=== PATIENT | female | born 1975 | race Two or more races ===

== ENCOUNTER 2016-06-18 20:26 | Emergency (ER) | payer OTHER ==
[2016-06-18 20:32] VITALS: BP 132/75; PULSE 64; TEMP 98; BMI 30.2
--- NOTE | 2016-06-18 21:08 | PDOC ---
History of Present Illness - General Chief Complaint: Vaginal Sxs Stated Complaint: POSSIBLE INFECTION Time Seen by Provider: 06/18/16 20:57 History Source: Patient Exam Limitations: No Limitations - History of Present Illness Initial Comments: 06/18/16 21:07 Chief complaint: Vaginal discharge and vaginal discomfort with itchiness History of present illness: Pt. is a 41-year-old female with h/o hyperthyroidism here today complaining of a worsening vaginal discharge over 2 weeks. Patient reports that she was on antibiotics approximately 2 weeks ago when she was in the [place] having liposuction of b/l upper arms. Hurts that she also had on a girdle that was rubbing in her vaginal area. Patient has been sexually active with the same person for many years. Patient is on control denies chance of . Patient reports that she had taken khhm-zrn-khrtdzl medication for yeast infection last week symptoms did not resolve patient continued to have like a white vaginal discharge and got 1 Diflucan from her primary care provider took it on Thursday however patient still continues to have discharge and vaginal discomfort. Vaginal discharge currently is white to yellowish and is thinner in consistency. Denies any urinary symptoms. Patient denies pelvic pain. Patient reports since too uncomfortable or have sex has not been having sexual intercourse recently. Pt. denies any vaginal odor. 06/18/16 21:39 06/18/16 22:02 Timing/Duration: changing over time Severity: moderate Associated Symptoms: reports: other (vaginal discharge ) Past History - Past Medical History Allergies/Adverse Reactions: Allergies Allergy/AdvReac Type Severity Reaction Status Date / Time No Known Allergies Allergy Verified 06/18/16 20:29 Home Medications: Ambulatory Orders Norgestimate-Ethinyl Estradiol [Ortho Tri-Cyclen Lo] 1 tab PO DAILY 04/13/13 Metronidazole 0.75% Vag. Gel [Metrogel 0.75% Vaginal Gel -] 1 applic VG HS #1 tube MDD 1 06/18/16 Thyroid Disease: Yes (HYPERTHYROIDISM) - Psycho/Social/Smoking Cessation Hx Anxiety: No Suicidal Ideation: No Smoking History: Never smoked Have you smoked in the past 12 months: No Number of Cigarettes Smoked Daily: 0 Information on smoking cessation initiated: No Hx Alcohol Use: No Drug/Substance Use Hx: No Substance Use Type: None Review of Systems - Review of Systems Able to Perform ROS?: Yes Constitutional: No: Symptoms Reported HEENTM: No: Symptoms Reported Respiratory: No: Symptoms reported Cardiac (ROS): No: Symptoms Reported ABD/GI: No: Symptoms Reported : Yes: Discharge (white to yellowish ). No: Dysuria, Frequency, Flank Pain, Hematuria, Urgency Musculoskeletal: No: Symptoms Reported Integumentary: No: Symptoms Reported Neurological: No: Symptoms reported *Physical Exam - Vital Signs Last Vital Signs Temp Pulse Resp BP Pulse Ox 98.0 F 64 14 132/75 100 06/18/16 20:31 06/18/16 20:31 06/18/16 20:31 06/18/16 20:31 06/18/16 20:31 - Physical Exam General Appearance: Yes: Appropriately Dressed Respiratory/Chest: positive: Lungs Clear, Normal Breath Sounds. negative: Chest Tender, Respiratory Distress Cardiovascular: positive: Regular Rhythm, Regular Rate, S1, S2 Female Pelvic Exam: positive: normal external exam, cervical os closed, normal adnexa, normal size ovaries, discharge (whitish yellow thin non odorous ), other (friable cervix). negative: CMT, lesions, Scalene Gland Gastrointestinal/Abdominal: positive: Normal Bowel Sounds, Soft. negative: Tender, Distended, Guarding, Rebound, Tenderness, Hepatomegaly, Spleenomegaly Integumentary: positive: Normal Color Neurologic: positive: Alert, Normal Response, Responsive Medical Decision Making - Medical Decision Making 06/18/16 21:42 Pt. is a 41-year-old female with no significant medical history here today complaining of a worsening vaginal discharge over 2 weeks. Patient reports that she was on antibiotics approximately 2 weeks ago when she was in the [place] having liposuction of b/l upper arms. Hurts that she also had on a girdle that was rubbing in her vaginal area. Patient has been sexually active with the same person for many years. Patient is on control denies chance of . Patient reports that she had taken eoor-pdy-copvubj medication for yeast infection last week symptoms did not resolve patient continued to have like a white vaginal discharge and got 1 Diflucan from her primary care provider took it on Thursday however patient still continues to have discharge and vaginal discomfort. Vaginal discharge currently is white to yellowish and is thinner in consistency. Denies any urinary symptoms. Patient denies pelvic pain. Patient reports since too uncomfortable or have sex has not been having sexual intercourse recently. Pt. denies any vaginal odor. Denies any hematuria. Or dysuria or frequency or urgency. Vaginal discharge, unprotected vaginal sex Rule out STD Plan: urinalysis was friable do not think the patient has urinary tract infection will get a urine C& S Urine hCG Chlamydia and gonorrhea amplification Genital culture Will treat patient prophylactically with azithromycin 1 g now and Rocephin 250 mg IM now urine C & S Metro gel 0.75% 1 applicatorful hs x 5 days diflucan 150 mg po now 06/18/16 22:02 Laboratory Tests 06/18/16 06/18/16 21:10 21:10 Urine Color Ltyellow Urine Appearance Clear Urine pH 7.0 Ur Specific [place] 1.017 Urine Protein Negative Urine Glucose (UA) Negative Urine Ketones Negative Urine Blood 1+ H Urine Nitrite Negative Urine Bilirubin Negative Urine Urobilinogen Negative Ur Leukocyte Esterase 3+ H Urine RBC 2 Urine WBC 4 Ur Epithelial Cells Few Urine Bacteria Rare Hyaline Casts 2 Urine Mucus Rare Urine HCG, Qual Negative 06/18/16 22:04 06/18/16 22:43 06/18/16 22:58 *DC/Admit/Observation/Transfer Diagnosis at time of Disposition: Unprotected sex Vaginitis Qualifiers: Chronicity: acute Qualified Code(s): N76.0 - Acute vaginitis - Discharge Dispostion Disposition: HOME Condition at time of disposition: Stable - Prescriptions Prescriptions: Metronidazole 0.75% Vag. 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
[2016-06-18] MEDS ORDERED: AZITHROMYCIN 1 GM PACKET PO ONE (21:38)
[2016-06-18] MEDS ORDERED: AZITHROMYCIN 1 GM PACKET ONE (21:41)
[2016-06-18] MEDS ORDERED: LIDOCAINE HCL 1%, 10 MG/ML (50 mL VIAL) SQ ONE (21:49)
[2016-06-18] MEDS ORDERED: FLUCONAZOLE 50 MG TABLET PO ONE (21:50)
[2016-06-18] MEDS ORDERED: LIDOCAINE HCL 1%, 10 MG/ML (20ML VIAL) ONE (21:51)
[2016-06-18 21:53] LABS: URINE APPEARANCE CLEAR; URINE BILIRUBIN NEGATIVE (NEGATIVE); URINE COLOR LTYELLOW; URINE GLUCOSE (UA) NEGATIVE (NEGATIVE); URINE KETONE NEGATIVE (NEGATIVE); URINE NITRITE NEGATIVE (NEGATIVE); URINE PROTEIN NEGATIVE (NEGATIVE); URINE UROBILINOGEN NEGATIVE E.U./dl (0.2-1.0)
[2016-06-18 21:54] LABS: URINE BLOOD 1+ (NEGATIVE)
[2016-06-18 21:55] LABS: URINE BACTERIA RARE /hpf (NONE SEEN); URINE HYALINE CAST 2 /lpf; URINE LEUK ESTERASE 3+ (NEGATIVE); URINE MUCUS RARE; URINE RBC 2 /hpf (0-3); URINE WBC 4 /hpf (3-5)
--- NOTE | 2016-06-21 09:01 | PDOC ---
Patient Follow-up (Call Back) - Post ED Follow - Up Condition at time of discharge: Stable Disposition at time of original discharge: HOME Reason for Call Back: Abnwl. Microbiology (+yeast like organism on genital cx Pt also has 20-30 K beta hemolytic strep and >100K unknown org on ucx, final report pending Pt was treated for BV mitchell carlos, no clue cells on cx, not on abx Called to see gamaliel pt was feeling and left message to call back)
== END 2016-06-18 22:47 | disposition home or self-care (01) ==
LOC: JERFT 20:26
DX: Z72.51 High risk heterosexual behavior (principal); N76.0 Acute vaginitis; E03.9 Hypothyroidism, unspecified
CPT/HCPCS: 36415; 81003; 81015; 84703; 87070; 87077; 87086; 87186; 87205; 87491; 87591; 96372; 99281-25

== ENCOUNTER 2020-07-18 04:21 | Day surgery (SDC) | payer OTHER ==
[2020-07-12 14:47] VITALS: BMI 28.5
[2020-07-18] MEDS ORDERED: BUPIVACAINE HCL/PF 0.25% (2.5MG/ML) 10 ML VIAL ONE (12:45)
[2020-07-18] MEDS ORDERED: ONDANSETRON 4 MG/2 ML VIAL IVPUSH PRN (12:59)
[2020-07-18] MEDS ORDERED: oxyCODONE HCL 5 MG TABLET PO PRN ×2 (12:59)
[2020-07-18] MEDS ORDERED: LACTATED RINGERS SOLUTION 1,000 ML IV SCH (13:00)
[2020-07-18] MEDS ORDERED: fentaNYL CITRATE 250 MCG/5 ML VIAL ONE (13:08)
[2020-07-18] MEDS ORDERED: EPHEDRINE SULFATE/0.9% NACL/PF 50 MG/10 ML SYRINGE NR ONE (13:08)
[2020-07-18] MEDS ORDERED: MIDAZOLAM HCL 2 MG/2 ML SINGLE DOSE VIAL ONE (13:09)
[2020-07-18] MEDS ORDERED: ROCURONIUM BROMIDE 100 MG/10 ML VIAL ONE (13:09)
[2020-07-18] MEDS ORDERED: PROPOFOL 20 ML ONE (13:09)
[2020-07-18] MEDS ORDERED: ceFAZolin SODIUM 1 GM VIAL IVPB ONE (13:24)
[2020-07-18] MEDS ORDERED: NEOSTIGMINE METHYLSULFATE 0.5 MG/ML - 10 ML MDV ONE (13:42)
[2020-07-18] MEDS ORDERED: PHENYLEPHRINE HCL 10 MG/1 ML SINGLE DOSE VIAL ONE (13:42)
[2020-07-18] MEDS ORDERED: BUPIVACAINE HCL/PF 0.5% (5 MG/ML) 30 ML VIAL IJ ONE (13:43)
[2020-07-18 15:25] VITALS: TEMP 97.4
[2020-07-18 17:33] VITALS: BP 130/80; PULSE 63
== END 2020-07-18 17:30 | disposition home or self-care (01) ==
LOC: JASU-SURG 04:21
PROVIDERS: ATTEND Obstetrics & Gynecology
PROC: 0UT74ZZ Resection of Bilateral Fallopian Tubes, Percutaneous Endoscopic Approach (ICD-10-PCS; principal; 2020-07-18 13:00)
DX: Z30.2 Encounter for sterilization (principal)
CPT/HCPCS: 81025; 86900; 88302-TC; 94760